=== PATIENT | female | born 1970 ===

== ENCOUNTER 2021-02-18 08:37 | Outpatient (REF) | payer MEDICAID, SELFPAY ==
[2021-02-18 10:05] LABS: MANUAL DIFF FLAG NO
[2021-02-18 10:11] LABS: Basophils Percent Auto 0.5 % (0-2); Eosinophils Absolute Auto 0.1 X10*3/uL (0.0-0.4); Eosinophils Percent Auto 1.6 % (0-4); Hemoglobin 11.8 g/dl (12.0-16.0); Imm Gran Abs Auto 0.02 X10*3/uL (0.00-0.03); Imm Gran Pct Auto 0.3 % (0.0-0.4); Lymphocytes Absolute Auto 1.7 X10*3/uL (1.2-4.9); Mean Corpuscular HGB Conc 31.9 g/dl (31.0-35.0); Mean Corpuscular Hemoglobin 27.6 pg (27.0-33.0); Mean Corpuscular Volume 86.7 fL (80-98); Mean Platelet Volume 11.3 fL (9.4-12.3); Monocytes Absolute Auto 0.6 X10*3/uL (0.1-1.2); Monocytes Percent Auto 9.4 % (2-11); Neutrophils Absolute Auto 3.9 X10*3/uL (2.0-8.3); Neutrophils Percent Auto 61.2 % (45-73); Platelet Count 261 X10*3/uL (160-400); Red Blood Count 4.27 X10*6/uL (4.20-5.50); Red Cell Distribution Width 17.2 % (11.0-16.0); White Blood Count 6.4 X10*3/uL (4.8-10.8)
[2021-02-18 10:34] LABS: Alanine Aminotransferase 14 U/L (0-31); Albumin Level 4.1 g/dL (3.5-5.0); Alkaline Phosphatase 52 U/L (39-117); Anion Gap 11 (12-20); Aspartate Amino Transferase 15 U/L (5-31); Bilirubin Total 0.3 mg/dL (0.0-1.0); Blood Urea Nitrogen 12 mg/dL (9-16); Calcium 8.5 mg/dL (8.4-10.2); Carbon Dioxide 24 mmol/L (22-29); Chloride 108 mmol/L (96-108); Cholesterol 150 mg/dL; Estimated Glomerular Filt Rate > 60; Glucose Random 96 mg/dL (60-115); HDL Cholesterol 59 mg/dL; LDL Cholesterol Calculated 84 mg/dl; Potassium 4.4 mmol/L (3.3-5.1); Sodium 139 mmol/L (135-145); Total Protein 6.8 g/dL (6.5-8.0); Triglycerides 38 mg/dL
== END 2021-02-18 08:38 | disposition home or self-care (01) ==
LOC: HO.LAB 08:37
PROVIDERS: PCP Internal Medicine Geriatric Medicine; Visit Provider Internal Medicine Geriatric Medicine
DX: Z00.00 Encounter for general adult medical examination without abnormal findings (principal); Z13.220 Encounter for screening for lipoid disorders; Z13.1 Encounter for screening for diabetes mellitus
CPT/HCPCS: 36415; 80053; 80061; 85025

== ENCOUNTER 2022-03-13 11:56 | Outpatient (REF) | payer MEDICAID, SELFPAY ==
--- NOTE | ~2022-03-13 | MM_ITS ---
EXAMINATION: MM SCREENING DIGITAL BREAST TOMOSYNTHESIS, BILATERAL CLINICAL INFORMATION: Screening. Asymptomatic. The lifetime risk of breast cancer based on the Tyrer-Cuzick Model is 19%. COMPARISON: Mammography: 06/18/2019, 04/28/2018 TECHNIQUE: Digital breast tomosynthesis is performed in both the craniocaudal and mediolateral oblique views along with computer-aided detection (CAD). Synthesized 2D images are generated from the tomosynthesis. FINDINGS: There are scattered areas of fibroglandular density (ACR BI-RADS breast composition Category b). There are no significant masses, abnormal calcifications, or other abnormalities. Parenchymal pattern is similar to prior studies. No interval architectural abnormality. The axilla are unremarkable. MM/MM tomosynthesis screening BI IMPRESSION: No mammographic evidence of malignancy. ASSESSMENT: BI-RADS 1: Negative RECOMMENDATION: Routine annual mammography screening. This patient's information was entered into a reminder system with a target due date for their next mammogram.
== END 2022-03-13 11:57 | disposition home or self-care (01) ==
LOC: HO.MAMMO 11:56
PROVIDERS: Visit Provider Internal Medicine Geriatric Medicine
DX: Z12.31 Encounter for screening mammogram for malignant neoplasm of breast (principal)
CPT/HCPCS: 77063; 77067

== ENCOUNTER → 2022-04-25 14:48 | Outpatient (BNVA) | payer MEDICAID, SELFPAY | PROVIDERS: PCP Internal Medicine Geriatric Medicine; Referring Provider Internal Medicine Geriatric Medicine; Visit Provider Nurse Practitioner | DX: Z01.818 Encounter for other preprocedural examination (principal); R19.5 Other fecal abnormalities; K59.04 Chronic idiopathic constipation | CPT/HCPCS: 99202 ==

== ENCOUNTER → 2022-05-17 14:57 | Outpatient (BNVA) | payer MEDICAID, SELFPAY | PROVIDERS: PCP Internal Medicine Geriatric Medicine; Visit Provider Nurse Practitioner | DX: Z01.818 Encounter for other preprocedural examination (principal); K59.04 Chronic idiopathic constipation | CPT/HCPCS: 99212 ==

== ENCOUNTER → 2022-06-14 14:58 | Outpatient (BNVA) | payer MEDICAID, SELFPAY | PROVIDERS: PCP Internal Medicine Geriatric Medicine; Visit Provider Nurse Practitioner | DX: K59.04 Chronic idiopathic constipation (principal) | CPT/HCPCS: 99212 ==

== ENCOUNTER 2022-08-22 08:54 | Day surgery (SDC) | payer MEDICAID, SELFPAY ==
[2022-08-16 14:26] VITALS: BMI 29.0
--- NOTE | 2022-08-21 10:27 | HO.ANESPROP2 ---
Documented by User: Zena Murdock NP 08/21/22 10:29 HPI - Anesthesia Eval Consult details Narrative: 52yo F for Colonoscopy [facility] Active Problems Active Problems: All Active Problems (Updated 04/25/22 @ 15:28 by MARLEE Zarate) Chronic idiopathic constipation (Acute) Preop examination (Acute) Fibrocystic breast disease (Acute) Hand pain (Acute) Diabetes (Acute) Past Medical History Medical History No known health problems Family History Family History Sister Breast cancer Maternal Aunt Fear of having malignant neoplasm of lymphatic system Surgical History Surgical History No pertinent past surgical history Social History Social History Patient Tobacco Use Status: Never used Tobacco Use of substances other than those prescribed or required for medical reasons: No Are you DNR?: No Advance Directives: No Advance Directives Information Provided: Yes Meds Allergies Allergy/AdvReac Type Severity Reaction Status Date / Time No Known Allergies Allergy Verified 06/14/22 15:17 [No Known Allergies*] Home Medications Medication Instructions Recorded Confirmed Last Taken Type herbal drugs (Colon Herbal cap PO 04/25/22 Unknown History Cleanser capsule) multivitamin 1 tab PO DAILY 04/25/22 Unknown History Exam Exam Date and Time: August 21, 2022 1027 Height,Weight and Vital Signs: Height 5 ft 3 in Weight 74.389 kg Assessment and Plan Assessment Anesthesia Assessment: Chart Reviewed Documented by User: González Hernandez MD 08/22/22 11:12 [facility] Past Medical History Medical History No known health problems Family History Family History Sister Breast cancer Maternal Aunt Fear of having malignant neoplasm of lymphatic system Family history of problems with anesthesia: No Surgical History Surgical History No pertinent past surgical history History of Problems with Anesthesia: No Social History Social History Patient Tobacco Use Status: Never used Tobacco Use of substances other than those prescribed or required for medical reasons: No Are you DNR?: No Advance Directives: No Advance Directives Information Provided: Yes Meds Allergies Allergy/AdvReac Type Severity Reaction Status Date / Time No Known Allergies Allergy Verified 06/14/22 15:17 [No Known Allergies*] Home Medications Medication Instructions Recorded Confirmed Last Taken Type herbal drugs (Colon Herbal cap PO 04/25/22 Unknown History Cleanser capsule) multivitamin 1 tab PO DAILY 04/25/22 Unknown History Exam Airway Mallampati Class: I TM Dist: >3cm Neck ROM: Full Heart: rrr Lungs: clear Assessment and Plan Final Anesthetic Review Family History of Problems with Anesthesia: No History of Problems with Anesthesia: No NPO: Yes ASA Class: I Final Preanesthetic Review: No Changes in Pt Med Stat, Meds/Allgs Chart Reviewed, Consent Obtained/Reviewed and Anes Risks/Benef Reviewed Patient Risk: Low Procedure Risk: Low Anesthetic Plan Anesthetic Plan: MAC: Disposition: Standard PACU
--- NOTE | 2022-08-22 10:13 | MHC.SHP ---
Pre-Procedural Eval Section A Date of Service: 08/22/22 Section B Chief Complaint: positive cologuard test Relevant Family History (Specify if Yes): No Relevant Social History: None Present Medications: see Short Stay Collaborative assessment Medical History: No relevant PMH History of Previous Operations: No relevant previous surgery Allergies: Allergies Allergy/AdvReac Type Severity Reaction Status Date / Time No Known Allergies Allergy Verified 06/14/22 15:17 [No Known Allergies*] Review of Systems Sugical H&P ROS: Negative: Constitution, Cardiovascular, Respiratory, Neurological, Psychiatric, Hem-Onc, Allergic/Immunologic, Gastrointestinal, Genitourinary, Musculoskeletal, Integumentary, Endocrine and Eyes/Ears/Nose/Throat Exam Surgical H&P Exam: Normal: HEENT, Normal: Heart, Normal: Lungs, Normal: Extremities, Normal: Abdomen, Normal: Skin and Normal: Neurological Plan Diagnosis/Plan: Unchanged I have reviewed the history and physical and performed a pertinent physical examination on my patient. No changes have occurred unless specified. Time Spent With Patient Time: Total time managing care of this patient today ____ minutes.
[2022-08-22 10:19] VITALS: BP 127/70; PULSE 71; RESP 18; TEMP 36.7; O2SAT 100; BMI 26.6
[2022-08-22] MEDS: Lactated Ringers 1,000 ML 100 ML IVCONT (10:57)
--- NOTE | 2022-08-22 10:59 | W.PM.OPN ---
Operative Note Operative Note Date of Service: 08/22/22 Narrative: Operative Information Procedure Description: Colonoscopy Indication: pos cologuard test Anesthesia: MAC COLONOSCOPY Instrument: Olympus variable stiffness pediatric scope 190L Colonoscopy Monitoring: Vital signs and clinical assessment, continuous EKG monitoring, Pulse oximetry, Carbon Dioxide monitoring and blood pressure monitoring were done throughout the procedure. Colon withdrawal time was 10 minutes. Procedure: The patient was placed in the left lateral decubitis position and pre-procedure medications were administered. After a digital rectal examination of the ano-rectum, the video colonoscope was inserted into the rectum and advanced through the colon to the cecum/TI. The colonoscope was slowly withdrawn in a retrograde panoramic fashion and the colon mucosa was carefully examined including a retroflexed view of the rectum. Findings and interventions are described below. Procedure Difficulty: easy Findings: Terminal Ileum-normal melanosis coli noted thru out colon, mild Cecum:normal Ascending Colon: normal Transverse Colon -normal Descending Colon:normal Sigmoid Colon: normal Rectum: Retroflexion with medium sized internal hemorrhoids, grade I Anorectum - normal Colon preparation: [place] Bowel Preparation Scale Right colon; 2 Transverse colon: 3 Left colon; 3 (0 = Unprepared colon segment with mucosa not seen due to solid stool that cannot be cleared. 1 = Portion of mucosa of the colon segment seen, but other areas of the colon segment not well seen due to staining, residual stool and/or opaque liquid. 2 = Minor amount of residual staining, small fragments of stool and/or opaque liquid, but mucosa of colon segment seen well. 3 = Entire mucosa of colon segment seen well with no residual staining, small fragments of stool or opaque liquid) Impression and Post Procedure Diagnosis: internal hemorrhoids melanosis coli Plan: High fiber diet leaflet Avoid straining at stool, epsom salts and sitz bath, anusol supps or cream Repeat Colonoscopy in 10 years or earlier if clinically indicated Above findings were reviewed with the patient and relevant handouts were provided if indicated.
[2022-08-22 11:42] VITALS: BP 102/98; PULSE 86; RESP 14; TEMP 36.6; O2SAT 98
[2022-08-22 11:57] VITALS: BP 116/66; PULSE 76; RESP 13; TEMP 36.2; O2SAT 100
== END 2022-08-22 12:40 | disposition home or self-care (01) ==
PROVIDERS: PCP Internal Medicine Geriatric Medicine; Visit Provider Internal Medicine Gastroenterology
PROC: 0DJD8ZZ Inspection of Lower Intestinal Tract, Via Natural or Artificial Opening Endoscopic (ICD-10-PCS; CPT 45378; principal; 2022-08-22 11:10)
DX: R19.5 Other fecal abnormalities (principal); K63.89 Other specified diseases of intestine; K64.0 First degree hemorrhoids; K59.04 Chronic idiopathic constipation; Z79.899 Other long term (current) drug therapy
CPT/HCPCS: 45378

== ENCOUNTER → 2022-09-06 11:48 | Outpatient (BNVA) | payer MEDICAID, SELFPAY | PROVIDERS: PCP Internal Medicine Geriatric Medicine; Referring Provider Internal Medicine Geriatric Medicine; Visit Provider Nurse Practitioner | DX: K59.04 Chronic idiopathic constipation (principal) | CPT/HCPCS: 99212 ==

== ENCOUNTER 2023-02-23 07:03 | Emergency (ER) | payer MEDICAID, SELFPAY ==
[2023-02-23 07:08] VITALS: BP 152/75; PULSE 74; RESP 18; TEMP 36.1; O2SAT 98; BMI 29.6
[2023-02-23 07:31] VITALS: BP 114/69; PULSE 84; RESP 18; O2SAT 97
--- NOTE | 2023-02-23 07:32 | ED.EXTPRO ---
HPI - Extremity Problem General Chief complaint: Extremity Injury, Upper Stated complaint: R neck/ arm pain Time Seen by Provider: 02/23/23 07:27 Source: patient Mode of arrival: ambulatory Limitations: no limitations History of Present Illness HPI Narrative: 53 yo female with history of DM, constipation who presents to the ER for evaluation of right sided neck pain and arm pain that started yesterday while at work after doing heavy lifting. She states the pain has been constant, is worse with movement of the neck and right arm. She took ibuprofen with minimal relief. She denies any associated trauma, chest pain, SOB, back pain. No weakness, numbnes or tingling in the right arm but the pain does radiate down the right arm. MD Complaint: extremity pain and other (right sided neck pain) Onset (ago): day(s) (1) Pain Consistency: constant Location: right, upper extremity and other (neck) Severity scale (1-10): 6 Quality: aching Radiation: distal Relieving factors: rest Exacerbating factors: range of motion and palpation Related Data Home Medications Medication Instructions Recorded Confirmed herbal drugs (Colon Herbal cap PO 04/25/22 Cleanser capsule) multivitamin 1 tab PO DAILY 04/25/22 Previous Rx's Medication Instructions Recorded linaclotide 290 mcg capsule 290 mcg PO QAM 30 days #30 caps 09/06/22 (Linzess) cyclobenzaprine 10 mg tablet 10 mg PO TID PRN muscle spasm #14 02/23/23 tabs lidocaine 5 % topical patch 1 patch topical DAILY #15 ea 02/23/23 naproxen 500 mg tablet 500 mg PO BID PRN pain #20 tabs 02/23/23 Allergies Allergy/AdvReac Type Severity Reaction Status Date / Time No Known Allergies Allergy Verified 02/23/23 07:10 [No Known Allergies*] Review of Systems Review of Systems: Yes all other systems are reviewed and are negative PMFSH Past Medical History Medical History No known health problems Surgical History H/O colonoscopy Family History Family History Sister Breast cancer Maternal Aunt Fear of having malignant neoplasm of lymphatic system Social History Social History Alcohol intake: never Patient Tobacco Use Status: Never used Tobacco Smoked in Last 30 Days: No Use of substances other than those prescribed or required for medical reasons: No Advance Directives: No Advance Directives Information Provided: No Physical Exam Vital Signs: Vital Signs: Last Vital Signs Temp 96.9 F 02/23/23 07:08 Pulse 84 02/23/23 07:31 Resp 18 02/23/23 07:31 BP 114/69 02/23/23 07:31 Pulse Ox 97 02/23/23 07:31 O2 Del Method Room Air 02/23/23 07:31 BMI result Body Mass Index 29.6 Appearance: Alert. Oriented X3. No acute distress. HEENT: normal inspection, atraumatic, normocephalic Neck: normal inspection, pain with rotation to the left. no midline tenderness. palpable spasm and tenderness of the right lateral soft tissues. CVS: Normal heart rate and rhythm. Pulses normal. Respiratory: No respiratory distress. Skin: Skin warm and dry. Normal skin color. Normal skin turgor. No rashes. Extremities: normal inspection of the bilateral upper extremities, normal ROM of the right shoulder with pain upon full abduction of the shoulder. tenderness of the upper trapzius and right anterior shoulder. negative empty can test. Neuro: Oriented X 3. No motor deficit. No sensory deficit. Strength is equal and symmetrical throughout. Medical Decision Making Medical Decision Making MDM Narrative: 53 yo female presents to the ER for evaluation of right sided neck and shoulder pain x1 day after heavy lifting. Exam and clinical presentation is c/w muscle strain and spasm. no trauma. No associated chest pain or back pain. will plan to treat with nsaid, muscle relaxer and lidoderm patches. discussed RICE and need for outpatient follow up. patient agrees w/ plan Differential Diagnosis Differential Diagnoses: The differential diagnosis associated with the presentation includes cervical strain, cervical spasm, cervical radiculopathy, rotator cuff injury, no evidence of dermatomal rash like zoster External Record Review External record reviewed: Outpatient record, Prior outpatient labs and Prior outpatient radiology Tests considered The following testing was considered but not selected: x-ray considered but deferred, no trauma Prescription Management I considered prescription management with: Pain Medication Chronic Conditions Patient?s care impacted by: Diabetes Critical Care Time Critical Care Time Critical Care Time: No Discharge Plan Discharge Clinical Impression: Cervical muscle strain Patient Disposition: Home, Self-Care Instructions: Cervical Strain (DC) Additional Instructions: Your pain is most likely due to muscle strain and spasm. No bending, lifting or twisting. Use ice several times per day for 20 minutes at a time for the next 48 hours and then change to heat. Take medications as prescribed to help with pain and discomfort. Follow up with your Primary Care Doctor this week. If your pain worsens, if you develop new numbness, tingling, weakness, loss of function or incontinence call 911 or come back to the ER right away for evaluation. Lo m?s probable es que noriega dolor se deba a tensi?n y espasmos musculares. Sin doblar, levantar o torcer. Use hielo varias veces al d?a odette 20 minutos a la vez odette las pr?ximas 48 horas y luego cambie a calor. [place] los medicamentos seg?n lo prescrito para ayudar con el dolor y la incomodidad. Deanne un seguimiento con noriega m?dico de atenci?n primaria esta semana. Si noriega dolor empeora, si desarrolla un nuevo entumecimiento, hormigueo, debilidad, p?rdida de funci?n o incontinencia, llame al 911 o regrese a la danielle de emergencias de inmediato para coral evaluaci?n. Prescriptions: New cyclobenzaprine 10 mg tablet 10 mg PO TID PRN (Reason: muscle spasm) Qty: 14 0RF lidocaine 5 % adhesive patch,medicated 1 patch topical DAILY Qty: 15 0RF Rx Instructions: leave on most painful area for up to 12 hrs naproxen 500 mg tablet 500 mg PO BID PRN (Reason: pain) Qty: 20 0RF No Action Linzess 290 mcg capsule 290 mcg PO QAM 30 Days Qty: 30 6RF multivitamin Tablet 1 tab PO DAILY Colon Herbal Cleanser Capsule PO Referrals: Name,MD Cheko [Primary Care Provider] - Interventions: ED Discharge Assessment Last Done: 02/23/23 07:40 Print Language: Slovenian
--- NOTE | 2023-02-23 07:34 | PC.NURSE ---
Alert and oriented. Arrived from home with right neck and shoulder pain. Stating was lifting something heavy at work yesterday and then felt the pain . States pain is 5/10. Hand grasps and shoulder shrugs strong and equal .Denies headache, sob, or chest pain. vss.
--- NOTE | 2023-02-23 07:41 | PC.NURSE ---
Discharge instructions reviewed with patient via aircraft skin burnisher. Patient verbalized understanding.
== END 2023-02-23 07:44 | disposition home or self-care (01) ==
PROVIDERS: Emergency Provider Emergency Medicine; PCP Internal Medicine Geriatric Medicine
DX: S16.1XXA Strain of muscle, fascia and tendon at neck level, initial encounter (principal); X50.0XXA Overexertion from strenuous movement or load, initial encounter; Y93.89 Activity, other specified; Y92.59 Other trade areas as the place of occurrence of the external cause; Y99.0 Civilian activity done for income or pay
CPT/HCPCS: 99283; 99284

== ENCOUNTER → 2023-03-07 12:27 | Outpatient (BNVA) | payer MEDICAID, SELFPAY | PROVIDERS: PCP Internal Medicine Geriatric Medicine; Visit Provider Nurse Practitioner | DX: K59.04 Chronic idiopathic constipation (principal) | CPT/HCPCS: 99212 ==

== ENCOUNTER 2023-03-15 08:54 | Outpatient (REF) | payer MEDICAID, SELFPAY ==
--- NOTE | ~2023-03-15 | MM_ITS ---
EXAMINATION: MM SCREENING DIGITAL BREAST TOMOSYNTHESIS, BILATERAL CLINICAL INFORMATION: Screening. Asymptomatic. The lifetime risk of breast cancer based on the Tyrer-Cuzick Model is 19%. COMPARISON: Mammography: This study is compared with prior exams dating back to 2018. TECHNIQUE: Digital breast tomosynthesis is performed in both the craniocaudal and mediolateral oblique views along with computer-aided detection (CAD). Synthesized 2D images are generated from the tomosynthesis. FINDINGS: There are scattered areas of fibroglandular density (ACR BI-RADS breast composition Category b). There are no significant masses, abnormal calcifications, or other abnormalities. MM/MM tomosynthesis screening BI IMPRESSION: No mammographic evidence of malignancy. ASSESSMENT: BI-RADS BI-RADS 1 - Negative RECOMMENDATION: Routine annual mammography screening. 1 year F/U This examination should not preclude the clinical evaluation of a suspicious palpable abnormality. This patient's information was entered into a reminder system with a target due date for their next mammogram.
== END 2023-03-15 08:55 | disposition home or self-care (01) ==
LOC: HO.MAMMO 08:54
PROVIDERS: PCP Internal Medicine Geriatric Medicine; Visit Provider Internal Medicine Geriatric Medicine
DX: Z12.31 Encounter for screening mammogram for malignant neoplasm of breast (principal)
CPT/HCPCS: 77063; 77067

== ENCOUNTER → 2023-03-15 09:00 | Outpatient (BNV) | payer MEDICAID, SELFPAY | PROVIDERS: PCP Internal Medicine Geriatric Medicine; Visit Provider Radiology Diagnostic Radiology | DX: Z12.31 Encounter for screening mammogram for malignant neoplasm of breast (principal) | CPT/HCPCS: 77063; 77067 ==

== ENCOUNTER 2023-03-30 07:49 | Outpatient (REF) | payer MEDICAID, SELFPAY ==
[2023-03-30 09:01] LABS: Cholesterol 187 mg/dL; HDL Cholesterol 51 mg/dL; LDL Cholesterol Calculated 122 mg/dl; Triglycerides 73 mg/dL
== END 2023-03-30 07:50 | disposition home or self-care (01) ==
LOC: HO.LAB 07:49
PROVIDERS: PCP Internal Medicine Geriatric Medicine; Visit Provider Internal Medicine Geriatric Medicine
DX: Z00.00 Encounter for general adult medical examination without abnormal findings (principal); K59.04 Chronic idiopathic constipation; G47.00 Insomnia, unspecified; Z13.1 Encounter for screening for diabetes mellitus; Z13.220 Encounter for screening for lipoid disorders
CPT/HCPCS: 36415; 80061

== ENCOUNTER 2024-03-05 11:50 | Outpatient (AMB) | payer OTHER, SELFPAY ==
[2024-03-05 11:59] VITALS: BP 142/75; PULSE 76; BMI 27.7
--- NOTE | 2024-03-05 11:59 | MHC.OFFVIS ---
Vital Signs 03/05/24 11:59 Height 5 ft 4 in Weight 161 lb 6.054 oz BMI 27.7 BP 142/75 H Blood Pressure Location Lt brachial Position Sitting Pulse 76 Intake Visit Reasons: 1 yr follow up Intake Note: Tamy presents to in office one year follow up of CIC. CC: Patient continues taking the Linzess and reports that she is doing well. Denies having any new GI symptoms or concerns. Rework Operator Required: Yes Accompanied by: Self / Same As Patient Allergies No Known Allergies [No Known Allergies*] Allergy (Verified 03/05/24 11:59) HPI HPI 1 yr follow up: Details: Assessment & Plan (1) Chronic idiopathic constipation: Code(s): K59.04 - Chronic idiopathic constipation Plan: [place] #Zainab Mckenzie She continues to do well on the Linzess 290mcg and she continues to be happy with this regimen. She has no new health problems to report. ROV 1 year. Medications: Refilled linaclotide (Linzess) 290 mcg PO QAM 30 days 30 caps 12RF K59.04 - Chronic idiopathic constipation TODAY'S VISIT [place] #[id number] She continues to do well on her Linzess. Return office visit in 6 months [facility] Medical History No known health problems Surgical History H/O colonoscopy Family History Sister Breast cancer Maternal Aunt Fear of having malignant neoplasm of lymphatic system Social History Alcohol intake: never Patient Tobacco Use Status: Never used Tobacco Review of Systems Const Denies fatigue, Denies fever(s), Denies night sweats, Denies poor appetite and Denies weight loss ENT Reports Normal hearing present, Denies dental pain, Denies dysphagia, Denies hearing loss, Denies mouth pain, Denies odynophagia, Denies throat swelling, Denies tongue swelling and Reports other (Dentition adequate) Card Reports no additional complaints Resp Reports no additional complaints GI Details: Denies abdominal pain, Denies melena, Denies bloating, Denies hematochezia, Reports constipation, Denies GI cramping, Denies dysphagia, Denies excessive flatus, Denies early satiety, Denies heartburn, Denies diarrhea, Denies nausea, Denies odynophagia, Denies vomiting and Denies hematemesis Skin/Breast Denies pruritus, Denies lesions, Denies rash and Denies jaundice Neuro Reports Normal hearing present and Denies Abnormal speech present Endo Denies fatigue Aller/Immun Denies throat swelling and Denies tongue swelling Physical Exam Vital Signs: Last Vital Signs Pulse 76 03/05/24 11:59 BP 142/75 H 03/05/24 11:59 BMI result Body Mass Index 27.7 Const General: cooperative, no acute distress, well developed and well groomed Nutritional Appearance: average body habitus and well nourished Orientation/consciousness: oriented to person, oriented to place and oriented to time Limitations: language barrier HEENT Head: Yes normocephalic and Yes atraumatic Eyes General: appearance normal, both eyes and all related structures Pupils: Equal, round and reactive pupils present Neck Neck: Yes normal visual inspection and Yes no lymphadenopathy Thyroid: Thyroid normal Resp Effort & Inspection: normal respiratory effort and able to speak in complete sentences Auscultation: clear to auscultation bilaterally Cardio Rate: regular rate Rhythm: regular rhythm Heart sounds: Normal, physiologic split S2 sound present Peripheral pulses: radial pulses present and posterior tibial pulses present GI Inspection: No distended and No Abdominal panniculus present Palpation (GI): Soft to palpation, nontender, no guarding, not rigid and No hepatosplenomegaly present Percussion: Yes normal to percussion Auscultation: normal bowel sounds Rectal Exam - Female: deferred Skin General skin exam: no rashes or lesions noted, turgor normal, skin not dry, no jaundice, No spider nevi and no striae Rashes: no rashes Nails: normal Neuro General: oriented to person, oriented to place and oriented to time Cranial nerves: Yes Equal, round and reactive pupils present and Yes Normal hearing present Speech: No Abnormal speech present Extrem General: Yes normal to inspection, No clubbing, No cyanosis and No edema Psych Appearance: grossly normal and well kempt Mental Status: mental status grossly normal Speech and movement: Normal speech and movement present Affect: normal affect Attitude: cooperative Thought process: Normal thought process present and not confabulating Thought content: Normal thought content present Insight: Limited insight present (Psych) Judgement: Limited judgement present (Psych) Assessment & Plan Assessment & Plan (1) Chronic idiopathic constipation: Code(s): K59.04 - Chronic idiopathic constipation Category: Medical Plan [place] #[id number] She continues to do well on her Linzess. Return office visit in 6 months Medications: Refilled linaclotide (Linzess) 290 mcg PO QAM 30 caps 12RF 30 days K59.04 - Chronic idiopathic constipation Coding Level of Care Code Est Pt Level 3 (42942) Diagnoses Chronic idiopathic constipation K59.04
== END 2024-03-05 12:18 | disposition home or self-care (01) ==
PROVIDERS: PCP Internal Medicine Geriatric Medicine; Visit Provider Nurse Practitioner
DX: K59.04 Chronic idiopathic constipation (principal)
CPT/HCPCS: 99213

== ENCOUNTER → 2024-03-05 11:50 | Outpatient (BNVA) | payer OTHER, SELFPAY | PROVIDERS: PCP Internal Medicine Geriatric Medicine; Visit Provider Nurse Practitioner | DX: K59.04 Chronic idiopathic constipation (principal) | CPT/HCPCS: 99212 ==

== ENCOUNTER 2024-03-18 08:50 | Outpatient (REF) | payer OTHER, SELFPAY | END 2024-03-18 08:51 | disposition home or self-care (01) | LOC: HO.MAMMO 08:50 | PROVIDERS: PCP Internal Medicine Geriatric Medicine; Visit Provider Internal Medicine Geriatric Medicine | DX: Z12.31 Encounter for screening mammogram for malignant neoplasm of breast (principal) | CPT/HCPCS: 77063; 77067 ==

== ENCOUNTER → 2024-03-18 09:00 | Outpatient (BNV) | payer OTHER, SELFPAY | PROVIDERS: PCP Internal Medicine Geriatric Medicine; Visit Provider Radiology Diagnostic Radiology | DX: Z12.31 Encounter for screening mammogram for malignant neoplasm of breast (principal) | CPT/HCPCS: 77063; 77067 ==

== ENCOUNTER 2024-12-29 08:02 | Outpatient (REF) | payer OTHER, SELFPAY ==
--- OUTSIDE RECORDS SUMMARY | 2024-12-29 08:11 | XMS_ITS | Encounter Summary ---
Author Organization [employer] Address [address] [facility] [address] [place] [address] Care Team Providers Care Photovoltaic Testing Technician Name Role Phone Name, Cheko BRANDT Primary Care Provider [phone] Reason for Visit * Reason Comments Elevated Blood Pressure Reading Encounter Details Date Type Department Care Team ([facility] st Contact Info) Description 12/24/2024 3:00 PM EDT Telemedicine [facility] [address] [place] [address] Suzanna Roach RN Elevated blood pressure reading Social History Tobacco Use Types Packs/Day Years Used Date Smoking Tobacco: Never Passive Smoke Exposure: Never Smokeless Tobacco: Never Alcohol Use Standard Drinks/Week Comments Never 0 (1 standard drink = 0.6 oz pur e alcohol) Depression Answer Date Recorded Patient Health Questionnaire-9 Score 0 12/15/2024 Patient Health Questionnaire-9 Score 0 12/15/2024 Last PHQ-9: Questionnaire Data Not on file 0 12/15/2024 Housing Stability Answer Date Recorded What is your housing situation today? I have diana ugalde 04/03/[address] you li ve. Do you have problems with any of the following? None of the above 04/03/2024 Food Insecurity Answer Date Recorded Within the past 12 months, y ou worried that your food would run out before you got money to buy more: Never True 04/03/2024 Within the past 12 months,th e food you bought just didn't last and you didn't have enough money to get more: Never True Transportation Answer Date Recorded In the past 12 months, has l ack of transportation kept you from medical appts, meetings, work or from getting things needed for daily living? No 04/03/2024 Utilities Answer Date Recorded In the past 12 months, has t he electric, gas, oil or water company threatened to shut off services in your home? No 04/03/2024 Depression Answer Date Recorded Patient Health Questionnaire-2 Score 0 12/15/2024 Internet Access Answer Date Recorded Internet Access Q1 Yes 05/11/2024 Internet Access Q2 Not on file 05/11/2024 Comments Unknown Sex and Gender Information Value Date Recorded Sex Assigned at Female 07/09/2022 10:31 AM EDT Legal Sex Female 10:31 AM EDT Gender Identity Female 07/09/2022 10:31 AM EDT Sexual Orientation Straight 07/09/2022 10 :31 AM EDT documented as of this encounter Progress Notes * Suzanna Roach RN - 12/24/2024 3:00 PM EDT SUBJECTIVE: Tamy Ramirez is a 54 y.o. year old female who presents for Elevated Blood Pressure Reading Preferred language for medical information: Manager Universal needed: Yes; [employer] metalizing supervisor (ID#[id number]) x 2 attempts. No answer. Purse Framer attempted to reach pt without metalizing supervisor. Pt answered. TC with [facility] metalizing supervisor Imer ID#[id number]. Today, Tamy Ramirez does not complain of any blurred vision, shortness of breath, chest pain, dizziness, or headaches. Pt denies smoking cigarettes or drinking alcohol. Pt reports they go to the gym and use weights for legs 2 times per week for 1 hour. Pt reports they walk Saturday-Saturday. Pt reports for breakfast have eggs, ham, cheese, and coffee. Pt reports they do not eat lunch. Pt reports they eat chicken, rice, and salad for dinner. Current Outpatient Medications Medication Sig Dispense Refill acetaminophen (Tylenol) 500 MG tablet Take 1 tablet (500 mg) by mouth every 6 (six) hours if neededfor mild pain for up to 20 doses. (Patient not taking: Reported on 12/11/2024) 20 tablet 0 Blood Pressure kit Use once a day 1 kit 0 Multiple Vitamins-Minerals (MULTIVITAMIN ADULT, MINERALS, PO) 1 tablet. naproxen (Naprosyn) 500 MG tablet TAKE 1 TABLET ORALLY 2 TIMES A DAY NEEDED FOR PAIN (Patient not taking: Reported on 12/11/2024) No current facility-administered medications for this visit. Patient Active Problem List Diagnosis Date Noted Dental calculus 05/12/2024 Dental plaque 05/12/2024 Chronic idiopathic constipation 03/26/2023 Fibrocystic breast disease 04/28/2018 Patient has no known allergies. Social History Tobacco Use Smoking Status Never Passive exposure: Never Smokeless Tobacco Never Social History Substance and Sexual Activity Alcohol Use Never Social History Substance and Sexual Activity Drug Use Never BP Readings from Last 4 Encounters: 12/15/24 (!) 146/82 12/11/24 124/78 06/09/24 124/78 05/12/24 125/85 Pulse Readings from Last 4 Encounters: 12/15/24 78 05/12/24 60 04/13/24 65 02/11/24 80 OBJECTIVE: Pt at home BP and HR readings as follows: 12/15/24: BP 126/82, HR 78 12/15/24: BP 130/80, HR 73 12/16/24: BP 129/88, HR 75 12/16/24: BP 128/79, HR 69 12/17/24: BP 130/88, HR 70 12/17/24: BP 128/82, HR 68 12/18/24: BP 134/89, HR 68 12/18/24: BP 130/87, HR 69 12/19/24: not home, no BP readings 12/20/24: BP 130/88, HR 75 12/20/24: BP 126/86, HR 69 12/21/24: BP 129/85, HR 74 12/21/24: BP 130/88, HR 70 12/22/24: BP 130/85, HR 75 12/22/24: BP 127/83, HR 68 12/23/24: BP 129/85, HR 70 12/23/24: BP 123/83, HR 67 12/24/24: BP 130/83, HR 66 ASSESSMENT: Achieve goal blood pressure of <140/90 or <130/80 PLAN: Tamy Ramirez advised of lifestyle modifications including low sodium diet and exercise were reviewed. Advised to avoid fried, fatty, processed foods, sweets, juice, soda. Encouraged to eat baked chicken, turkey, fish, fruits, vegetables, water. Tamy Ramirez agreeable to plan discussed at today's visit. Future Appointments Date Time Provider Department Center 06/17/2025 3:00 PM Rekha Holt [facility] Suzanna Roach, RN documented in this encounter Plan of Treatment Upcoming Encounters Date Type Department Care Team (Late st Contact Info) Description 06/17/2025 3:00 PM EDT Office Visit [facility] [address] [place] [address] Rekha Holt documented as of this encounter Visit Diagnoses Diagnosis Elevated blood pressure reading Elevated blood pressure reading without diagnosis of hypertension documented in this encounter Additional Health Concerns Assessment Noted Time PHQ-9 Depression Total Score: 0 12/16/19 25 3:55 PM EDT documented as of this encounter Care Teams Photovoltaic Testing Technician Relationship Specialty Start Date End Date Name, MD Cheko [address] [place] [address] PCP - General Family Medicine 03/04/17 documented as of this encounter
--- OUTSIDE RECORDS SUMMARY | 2024-12-29 08:11 | XMS_ITS | Encounter Summary ---
Author Organization [employer] Address [address] [place] [address] Care Team Providers Care Machine Tool Rebuilder Name Role Phone Name, Cheko BRANDT Primary Care Provider [phone] Encounter Details Date Type Department Care Team (Latest Contact Info) Description 12/24/2024 Travel Social History Tobacco Use Types Packs/Day Years [...] AM EDT documented as of this encounter Plan of Treatment Upcoming Encounters Date Type Department Care Team (Late st Contact Info) Description 06/17/2025 3:00 PM EDT Office Visit [facility] [address] [place] [address] Rekha Holt documented as of this encounter Visit Diagnoses Not on filedocumented in this encounter Additional Health Concerns Assessment Noted Time PHQ-9 Depression Total Score: 0 12/16/19 25 3:55 PM EDT documented as of this encounter Care Teams Machine Tool Rebuilder Relationship Specialty Start Date End Date Name, MD Cheko [address] [place] [id number] PCP - General Family Medicine 03/04/17 documented as of this encounter
--- OUTSIDE RECORDS SUMMARY | 2024-12-29 08:11 | XMS_ITS | Encounter Summary ---
Author Organization [employer] Address [address] [facility] [address] [place] [address] Care Team Providers Care Research Chemist Name Role Phone Name, Cheko BRANDT Primary Care Provider [phone] Reason for Visit * Reason Onset Date Comments insurance for appt 02/11/2024 Encounter Details Date Type Department Care Team ([facility] st Contact Info) Description 02/11/2024 Telephone [facility] [address] [place] [address] Rosaura Desouza, DDS [address] [place] [address] insurance for appt Social History Tobacco Use Types Packs/Day Years Used Date Smoking Tobacco: Never Smokeless Tobacco: Never Alcohol Use Standard Drinks/Week Comments Never 0 (1 standard drink = 0.6 oz pur e alcohol) Depression Answer Date Recorded Patient Health Questionnaire-9 Score 0 03/26/2023 Housing Stability Answer Date Recorded What is your housing situation today? I have diana ugalde 07/08/[address] you li ve. Do you have problems with any of the following? None of the above 07/08/2023 Food Insecurity Answer Date Recorded Within the past 12 months, y ou worried that your food would run out before you got money to buy more: Never True 07/08/2023 Within the past 12 months,th e food you bought just didn't last and you didn't have enough money to get more: Never True Transportation Answer Date Recorded In the past 12 months, has l ack of transportation kept you from medical appts, meetings, work or from getting things needed for daily living? No 07/08/2023 Utilities Answer Date Recorded In the past 12 months, has t he electric, gas, oil or water company threatened to shut off services in your home? No 07/08/2023 Depression Answer Date Recorded Patient Health Questionnaire-2 Score 0 03/26/2023 Comments Unknown Sex and Gender Information Value Date Recorded Sex Assigned at Female 07/09/2022 10:31 AM EDT Legal Sex Female 10:31 AM EDT Gender Identity Female 07/09/2022 10:31 AM EDT Sexual Orientation Straight 07/09/2022 10 :31 AM EDT documented as of this encounter Miscellaneous Notes * Telephone Encounter - Avril Shepard - 02/11/2024 8:38 AM EDT Patient did not have [facility] card on her and unable to provie number. No access to MMIS on PAR side Insurance not posted or added to chart. Informed patient must bring her insurance card to appt with her. Patient understood Informed front desk lead via email and documented in chart DR documented in this encounter Plan of Treatment Upcoming Encounters Date Type Department Care Team (Late st Contact Info) Description 06/17/2025 3:00 PM EDT Office Visit [facility] [address] [place] [address] Rekha Holt documented as of this encounter Visit Diagnoses Not on filedocumented in this encounter Additional Health Concerns Assessment Noted Time PHQ-9 Depression Total Score: 0 03/26/20 23 9:41 AM EDT documented as of this encounter Care Teams Research Chemist Relationship Specialty Start Date End Date Name, MD Cheko [address] [place] [address] PCP - General Family Medicine 03/04/17 documented as of this encounter
--- OUTSIDE RECORDS SUMMARY | 2024-12-29 08:11 | XMS_ITS | Clinical Summary ---
Author Organization [employer] Address [address] [facility] [address] [place] [address] Care Team Providers Care Webbing Tacker Name Role Phone Name, Cheko BRANDT Primary Care Provider [phone] Allergies No known active allergies Medications naproxen (Naprosyn) 500 MG tablet TAKE 1 TABLET ORALLY 2 TIMES A DAY NEEDED FOR PAIN 023 Active acetaminophen (Tylenol) 500 MG tablet Take 1 tablet (500 mg) by mouth every 6 (six) hours if needed for mild pain for up to 20 doses. 20 tablet 024 Active Additional Information Patient not taking.Reported on 12/11/2024 Multiple Vitamins-Minerals (MULTIVITAMIN ADULT, MINERALS, PO) 1 tablet. 022 Active Blood Pressure kitIndications:El evated blood pressure reading Use once a day 1 kit 025 Active Linzess 290 MCG capsule TAKE 1 CAPSULE BY MOUTH DAILY IN THE MORNING 023 2024 Discontinued(T herapy completed) lidocaine (Lidoderm) 5 % patch APPLY 1 PATCH TOPICALLY DAILY LEAVE ON MOST PAINFUL AREA FOR UP TO 12 HOURS 023 2024 Discontinued(T herapy completed) cyclobenzaprine (Flexeril) 10 MG tablet TAKE 1 TABLET ORALLY 3 TIMES A DAY NEEDED FOR MUSCLE SPASM 023 2024 Discontinued Diclofenac Sodium (Voltaren) 1 % gelIndications:Os teoarthritis of hand, unspecified laterality, unspecified osteoarthritis type,Heberden's node Apply a think layer twice a day to the affected fingers 50 g 3 024 2024 Discontinued(T herapy completed) Cyclobenzaprine-L idocaine-Ment (CYCLOBENZAPRINE & LIDO-MENT CO) 10 mg. 023 2024 Discontinued(T herapy completed) Active Problems Problem Noted Date Diagnosed Date Dental calculus 05/12/2024 Dental plaque 05/12/2024 Chronic idiopathic constipation 03/26/2023 Overview (03/26/2023): Normal colonoscopy 08/2022 Fibrocystic breast disease 04/28/2018 Resolved Problems Problem Noted Date Diagnosed Date Resolved Date Cervical muscle strain 03/26/202303/26 Diabetes 03/26/2023 03/26/2023 Preop examination 03/26/2023 03/26/2023 Positive colorectal cancer s creening using DNA-based stool test 03/13/2022 03/26/2023 Hand pain 11/04/2017 03/26/2023 Encounters Date Type Department Care Team Description 12/24/2024 3:00 PM EDT Telemedicine [facility] [address] [place] [id number] Suzanna Roach RN Elevated blood pressure reading 12/24/2024 Travel 12/15/2024 3:45 PM EDT Office Visit [address] [address] Cheko Griggs MD Elevated blood pressure reading (Primary Dx); Screening for diabetes mellitus; Screening for cholesterol level; Family history of breast cancer 12/15/2024 Travel 12/14/[address] [address] Jerald Ochoa MA chart pep 12/11/2024 3:00 PM EDT Office Visit [facility] ADULT DENTAL [address] [place] [address] Rekha Holt from Last 3 Months Immunizations Name Administration Dates Next Due Influenza injectable quadriv alent IIV4 with preservative 06/25/2018 MMR 03/15/2017 Tdap 03/07/2017 Family History Medical History Relation Name Comments Breast cancer Sister 1 Breast cancer Sister 2 Relation Name Status Comments Sister 1 Sister 2 Alive Social History Tobacco Use Types Packs/Day Years Used Date Smoking Tobacco: Never Passive Smoke Exposure: Never Smokeless Tobacco: Never Tobacco Cessation:Counseling Given: Not Answered Alcohol Use Standard Drinks/Week Comments Never 0 [...] Orientation Straight 07/09/2022 10 :31 AM EDT Last Filed Vital Signs Vital Sign Reading Time Taken Comments Blood Pressure 146/82 12/15/2024 4:02 PM EDT Pulse 78 12/15/2024 3:49 PM EDT Temperature 36.9 ??C (98.5 ??F) 12/15/2024 3:49 PM ED T Respiratory Rate 20 12/15/2024 3:49 PM EDT Oxygen Saturation 99% 12/15/2024 3:49 PM EDT Inhaled Oxygen Concentration - - Weight 75.1 kg (165 lb 8 oz) 12/15/2024 3:49 PM EDT Height 160 cm (5' 3 ) 12/15/2024 3:49 PM EDT Body Mass Index 29.32 12/15/2024 3:49 PM EDT Plan of Treatment Upcoming Encounters Date Type Department Care Team (Late st Contact Info) Description 06/17/2025 3:00 PM EDT Office Visit [facility] ADULT DENTAL [address] [place] [address] Rekha Holt Health Maintenance Due Date Last Done Comments CT Colonography 1972 FIT DNA/Cologuard 1972 FIT 1972 FOBT 1972 HIV Screening 1970 Sigmoidoscopy 1972 Family Planning (PISQ) 01/19/1987 Hepatitis C Screening 01/19/1990 Hepatitis B Vaccines (1 of 3 - 19+ 3-dose series) 01/19/1991 Pneumococcal Vaccine: 50+ Years (1 of 1 - PCV) 01/19/2022 Zoster Vaccines (1 of 2) 01/19/2022 COVID-19 Vaccine (3 - 2023- season) 2024 03/07/2021, 02/14/2021 Influenza Vaccine (#1) 2024 06/25/2018 Mammogram 03/18/2025 03/18/2024, 07/0 03/2023, 03/15/2023, Additional history exists SDOH Screening 04/03/2025 04/03/2024 Dental Oral Exam 06/13/2025 12/11/2024, 11/2023, 07/17/2018 Dental Prophylaxis 06/13/2025 12/11/2024, 05/12/2024 Dental X-Ray: Bitewings 12/12/2025 12/12/19 25, 05/12/2024, 07/17/2018 Alcohol/Substance Use Screening 12/15/2025 12/15/2024 Depression Screening 12/15/2025 12/15/2024, 12/16/19 Tobacco Screening 12/15/2025 12/15/2024 Cervical Cancer Screening 02/22/2026 HPV/Cotest 02/22/2026 02/22/2021 Pap Smear 02/22/2026 02/22/2021 Dental X-Ray: Full Mouth 02/11/2027 02/11/2024, 11/04/2018 DTaP/Tdap/Td Vaccines (2 - Td or Tdap) 03/07/2027 03/07/2017 Colonoscopy 09/09/2031 09/09/2021 Colorectal Cancer Screening 09/09/2031 RSV Patients and Patients Aged 60 years or older (1 - 1-dose 75+ series) 01/19/2047 HIB Vaccines Aged Out No longer eligi ble based on patient's age to complete this topic HPV Vaccines Aged Out No longer eligi ble based on patient's age to complete this topic Hepatitis A Vaccines Aged Out No long er eligible based on patient's age to complete this topic IPV Vaccines Aged Out No longer eligi ble based on patient's age to complete this topic Meningococcal Vaccine Aged Out No keira christianne eligible based on patient's age to complete this topic RSV under 20 months Aged Out No longe r eligible based on patient's age to complete this topic Rotavirus Vaccines Aged Out No longer eligible based on patient's age to complete this topic Procedures Procedure Name Priority Date/Time Associated Diagnosis Comments PERIODIC ORAL EVALUATION - ESTABLISHED PATIENT Routine 12/11/2024 3:00 PM EDT COMPREHENSIVE PERIODONTAL EVALUATION - NEW OR ESTABLISHED PATIENT Routine 12/11/2024 3:00 PM EDT 19 INTRAORAL - PERIAPICAL FIRST RADIOGRAPHIC IMAGE Routine 12/11/2024 3:00 PM EDT BITEWING - SINGLE RADIOGRAPHIC IMAGE Routine 12/11/2024 3:00 PM EDT ORAL HYGIENE INSTRUCTIONS Routine 12/11/2024 3:00 PM EDT CASE PRESENTATION, DETAILED AND EXTENSIVE TREATMENT PLANNING Routine 12/11/2024 3:00 PM EDT PROPHYLAXIS - ADULT Routine 12/11/2024 3 :00 PM EDT BI MAMMOGRAM SCREENING TOMOSYNTHESIS BILATERAL Routine 03/18/2024 9:12 AM EDT PANORAMIC RADIOGRAPHIC IMAGE Routine 02/11/2024 1:00 PM EDT HM COLONOSCOPY Routine 09/09/2021 HPV MRNA E6/E7 Routine 02/22/2021 10:42 AM EDT THINPREP PAP Routine 02/22/2021 10:42 AM EDT from Last 3 Months or Most Recently Relevant to Health Maintenance Results * BI Mammogram Screening Tomosynthesis Bilateral (03/18/2024 9:12 AM EDT) Anatomical Region Laterality Modality Breast Bilateral Mammography 03/18/2024 9:12 AM EDT Narrative 04/13/2024 10:59 PM EDT ? [facility] ? [address] ?[place] [address] ? Mammography Report ? Signed ? Patient: Tamy Boucher ?MR#: ?? [id number] ? : 1970 ?Acct:[id number] ? Age/Sex: 54 / F ?ADM Date: 03/18/24 ? Loc: HO.MAMMO ? Attending Dr: Cheko Name MD ? Ordering Physician: Name,Cheko MD ?Results: 1Negative ? Date of Service: 03/18/24 ?Follow Up: 1 Year From Orig ?? inal Mammogram ? Procedure(s): MM tomosynthesis screening BI ?? Accession Number(s): [id number] ? cc: Name,Cheko BRANDT ? EXAMINATION: ?? MM SCREENING DIGITAL BREAST TOMOSYNTHESIS, BILATERAL ? CLINICAL INFORMATION: ? Screening. Asymptomatic. ? COMPARISON: ?? Mammography: This study is compared with prior exams dating back to ?? 2021. ? TECHNIQUE: ?? Digital breast tomosynthesis is performed in both the craniocaudal and ?? mediolateral oblique views along with computer-aided detection (CAD). ?? Synthesized 2D images are generated from the tomosynthesis. ? FINDINGS: ?? There are scattered areas of fibroglandular density (ACR BI-RADS breast ?? composition Category b). ? There are no significant masses, abnormal calcifications, or other ?? abnormalities. ? MM/MM tomosynthesis screening BI ?? IMPRESSION: ?? No mammographic evidence of malignancy. ? ASSESSMENT: ? BI-RADS BI-RADS 1 - Negative ? RECOMMENDATION: ?? Routine annual mammography screening. ? 1 year F/U ? This examination should not preclude the clinical evaluation of a ?? suspicious palpable abnormality. ? This patient's information was entered into a reminder system with a ?? target due date for their next mammogram. ? Dictated By: ?Jennifer Del Valle MD ? Signed By: ?<Electronically signed by Jennifer Del Valle MD in OV> ? 04/13/246 ? DD/ 1 ? TD/TT: ? Stereotype Finisher: ? Procedure Note Camryn, Image - 04/13/2024 [facility] [address] [place], [place] [address] Mammography Report Signed Patient: Tamy Boucher#: [id number] : 1970Acct:[id number] Age/Sex: 54 / FADM Date: 03/18/24 Loc: JESÚS Attending Dr: Cheko Griggs MD Ordering Physician: Cheko Griggsults: 1Negative Date of Service: 03/18/24Follow Up: 1 Year From Orig inal Mammogram Procedure(s): MM tomosynthesis screening BI Accession Number(s): [id number] cc: Cheko Griggs MD EXAMINATION: MM SCREENING DIGITAL BREAST TOMOSYNTHESIS, BILATERAL CLINICAL INFORMATION: Screening. Asymptomatic. COMPARISON: Mammography: This study is compared with prior exams dating back to 2021. TECHNIQUE: Digital breast tomosynthesis is performed in both the craniocaudal and mediolateral oblique views along with computer-aided detection (CAD). Synthesized 2D images are generated from the tomosynthesis. FINDINGS: There are scattered areas of fibroglandular density (ACR BI-RADS breast composition Category b). There are no significant masses, abnormal calcifications, or other abnormalities. MM/MM tomosynthesis screening BI IMPRESSION: No mammographic evidence of malignancy. ASSESSMENT: BI-RADS BI-RADS 1 - Negative RECOMMENDATION: Routine annual mammography screening. 1 year F/U This examination should not preclude the clinical evaluation of a suspicious palpable abnormality. This patient's information was entered into a reminder system with a target due date for their next mammogram. Dictated By: eJnnifer Del Valle MD Signed By: <Electronically signed by Jennifer Del Valle MD in OV> 04/13/24 2256 DD/ TD/TT: Stereotype Finisher: us Cheko Griggs MD IMG BI PROCEDURES Final Result * Hm Colonoscopy (09/09/2021) Colonoscopy Normal Normal us Cheko Griggs MD HEALTH MAINTENANCE Final Result * THINPREP PAP (02/22/2021 10:42 AM EDT) Clinical Information: None given [facility] COMMENT SEE COMMENT [facility] Comment: EXPLANATORY NOTE: ? The Pap is a screening test for cervical cancer. It is ?? not a diagnostic test and is subject to false negative ?? and false positive results. It is most reliable when a ?? satisfactory sample, regularly obtained, is submitted ?? with relevant clinical findings and history, and when ?? the Pap result is evaluated along with historic and ?? current clinical information. ?? Director Housekeeping : SEE COMMENT [facility] Comment: BLC,CT(ASCP) CT screening location: [address] ??[address] Interpretation/R esult: Negative for intraepithelial lesion or malignancy. [facility] LMP: 02/17/2021 [facility] Prev. BX: NONE GIVEN [facility] Prev. PAP: 12/24 NIL [facility] SOURCE: Cervix [facility] Statement Of Adequacy: SEE COMMENT [facility] Comment: Satisfactory for evaluation. Endocervical/transformation zone component present. 02/22/2021 10:4 2 AM EDT M[facility] PATHOLOGY ORDERABLES Final Result Performing Organization Address [facility] Co de Phone Number [facility] [address] * HPV mRNA E6/E7 (02/22/2021 10:42 AM EDT) HPV nRNA E6/E7 Not Detected Not Detected [facility] Comment: Methodology: Health And Fitness Instructor-Mediated Amplification This assay detects E6/E7 viral messenger RNA (mRNA) from 14 high-risk HPV types (16,18,31,33,35,39,45,51,52,56,58,59,66,68). ? The analytical performance characteristics of this assay have been determined by [employer]. The modifications have not been cleared or approved by the FDA. This assay has been validated pursuant to the CLIA regulations and is used for clinical purposes. ?? For additional information, please refer to http://education.The FeedRoom.BCNX/faq/IID789l6 (This link if provided for information/ educational purposes only.) 02/22/2021 10:4 2 AM EDT Monse James [facility] LAB BLOOD ORDERABLES Eneida l Result Performing Organization Address [facility] Co de Phone Number [facility] [address] from Last 3 Months or Most Recently Relevant to Health Maintenance Insurance [facility] - [facility] PARTIAL (MEDICAID) Care Teams Webbing Tacker Relationship Specialty Start Date End Date Name, MD Cheko [address] [place] [address] PCP - General Family Medicine 03/04/17
[2024-12-29 12:05] LABS: Alanine Aminotransferase 23 U/L (0-31); Albumin Level 4.3 g/dL (3.5-5.0); Alkaline Phosphatase 59 U/L (39-117); Anion Gap 9 (12-20); Aspartate Amino Transferase 22 U/L (5-31); Bilirubin Total 0.3 mg/dL (0.0-1.0); Blood Urea Nitrogen 16 mg/dL (9-16); Calcium 8.9 mg/dL (8.4-10.2); Carbon Dioxide 27 mmol/L (22-29); Chloride 108 mmol/L (96-108); Cholesterol 179 mg/dL (<200); Estimated Glomerular Filt Rate > 60; Glucose Random 91 mg/dL (60-115); HDL Cholesterol 58 mg/dL (>40); LDL Cholesterol Calculated 107 mg/dL (<100); Potassium 3.9 mmol/L (3.3-5.1); Sodium 140 mmol/L (135-145); Total Protein 7.3 g/dL (6.5-8.0); Triglycerides 72 mg/dL (<150)
== END 2024-12-29 08:03 | disposition home or self-care (01) ==
LOC: HO.HHCL 08:02
PROVIDERS: Visit Provider Internal Medicine Geriatric Medicine
DX: Z13.1 Encounter for screening for diabetes mellitus (principal); Z13.220 Encounter for screening for lipoid disorders
CPT/HCPCS: 36415; 80053; 80061

== ENCOUNTER 2025-03-04 12:05 | Outpatient (AMB) | payer OTHER, SELFPAY ==
--- NOTE | 2025-03-04 12:07 | A.OFFVIS_ITS ---
Vital Signs 03/04/25 12:14 Height 5 ft 4 in Weight 163 lb BMI 28.0 BP 142/72 H Blood Pressure Location Rt brachial Position Sitting Pulse 74 Pulse Source Pulse Oximeter Pulse Oximetry (%) 98 Oxygen Delivery Method Room Air Intake Visit Reasons: 1 year follow up [facility] Intake Note: Est pt for mgmt of [facility]. CC; Pt denies any GI sx or concerns at this time. Confirms that her linzess is still working as intended. Oil Developer Required: Yes Oil Developer Services: Oil Developer Present Oil Developer [place] [facility] [place] [id number] Information Interpreted: clinical only Accompanied by: Self / Same As Patient Allergies No Known Allergies (No Known Allergies*) Allergy (Verified 03/04/25 12:07) HPI HPI 1 year follow up [facility]: Details: Assessment & Plan (1) Chronic idiopathic constipation: Code(s): K59.04 - Chronic idiopathic constipation Category: Medical Plan [place] #[id number] She continues to do well on her Linzess. Return office visit in 6 months Medications: Refilled linaclotide (Linzess) 290 mcg PO QAM 30 caps 12RF 30 days K59.04 - Chronic idiopathic constipation TODAYS VISIT [place] Nicolás Live On the Linzess 290 she is now moving her bowels well and is satisfied with this. Return office visit in 6 months [facility] Medical History No known health problems Surgical History H/O colonoscopy Family History Sister Breast cancer Maternal Aunt Fear of having malignant neoplasm of lymphatic system Social History Alcohol intake: never Patient Tobacco Use Status: Never used Tobacco Review of Systems Const Denies fatigue, Denies fever(s), Denies night sweats, Denies poor appetite and Denies weight loss Eyes Reports requires corrective lenses ENT Reports Normal hearing present, Denies dental pain, Denies dysphagia, Denies hearing loss, Denies mouth pain, Denies odynophagia, Denies throat swelling, Denies tongue swelling and Reports other (Dentition adequate) GI Details: Denies abdominal pain, Denies melena, Denies bloating, Denies hematochezia, Denies constipation, Denies GI cramping, Denies dysphagia, Denies excessive flatus, Denies early satiety, Denies heartburn, Denies diarrhea, Denies nausea, Denies odynophagia, Denies vomiting and Denies hematemesis Skin/Breast Denies pruritus, Denies lesions, Denies rash and Denies jaundice Neuro Reports Normal hearing present and Denies Abnormal speech present Endo Denies fatigue Aller/Immun Denies throat swelling and Denies tongue swelling Physical Exam Vital Signs: Last Vital Signs Pulse 74 03/04/25 12:14 BP 142/72 H 03/04/25 12:14 Pulse Ox 98 03/04/25 12:14 Oxygen Delivery Method Room Air 03/04/25 12:14 BMI result Body Mass Index 28.0 Const General: cooperative, no acute distress, well developed and well groomed Nutritional Appearance: well nourished Orientation/consciousness: oriented to person, oriented to place and oriented to time Limitations: language barrier HEENT Head: Yes normocephalic and Yes atraumatic Eyes General: appearance normal, both eyes and all related structures Pupils: Equal, round and reactive pupils present Neck Neck: Yes normal visual inspection and Yes no lymphadenopathy Thyroid: Thyroid normal Resp Effort & Inspection: normal respiratory effort and able to speak in complete sentences Auscultation: clear to auscultation bilaterally Cardio Rate: regular rate Rhythm: regular rhythm Heart sounds: Normal, physiologic split S2 sound present Peripheral pulses: radial pulses present and posterior tibial pulses present GI Inspection: No distended and No Abdominal panniculus present Palpation (GI): Soft to palpation, nontender, no guarding, not rigid and No hepatosplenomegaly present Percussion: Yes normal to percussion Auscultation: normal bowel sounds Rectal Exam - Female: deferred Skin General skin exam: no rashes or lesions noted, turgor normal, skin not dry, no jaundice, No spider nevi and no striae Rashes: no rashes Nails: normal Neuro General: oriented to person, oriented to place and oriented to time Cranial nerves: Yes Equal, round and reactive pupils present and Yes Normal hearing present Speech: No Abnormal speech present Extrem General: Yes normal to inspection, No clubbing, No cyanosis and No edema Psych Thought process: Normal thought process present and not confabulating Thought content: Normal thought content present Insight: Good insight present (Psych) Judgement: Good judgement present (Psych) Assessment & Plan Assessment & Plan (1) Chronic idiopathic constipation: Code(s): K59.04 - Chronic idiopathic constipation Category: Medical Plan [place] Nicolás Live On the Linzess 290 she is now moving her bowels well and is satisfied with this. Return office visit in 6 months Medications: Refilled linaclotide (Linzess) 290 mcg PO QAM 30 caps 12RF 30 days K59.04 - Chronic idiopathic constipation Coding Level of Care Code Est Pt Level 3 (07557) Diagnoses Chronic idiopathic constipation K59.04
[2025-03-04 12:14] VITALS: BP 142/72; PULSE 74; O2SAT 98; BMI 28.0
--- OUTSIDE RECORDS SUMMARY | 2025-03-04 14:27 | XMS_ITS | Encounter Summary ---
Author Organization [employer] Address [address] [facility] [address]t [place] [address] Care Team Providers Care Traffic Clerk Name Role Phone Name, Cheko BRANDT Primary Care Provider [phone] Reason for Visit * Reason Onset Date Comments insurance for appt 02/11/2024 Encounter Details Date Type Department Care Team ([facility] st Contact Info) Description 02/11/2024 Telephone [facility] ADULT DENTAL [address] [place] [address] Rosaura Desouza, DDS [address] [place] [address] insurance for appt Social History Tobacco Use [...] with her. Patient understood Informed front desk administrator via email and documented in chart DR documented in this encounter Plan of Treatment Upcoming Encounters Date Type Department Care Team (Late st Contact Info) Description 04/30/2025 10:30 AM EDT Office Visit [facility] MEDICINE [address] [place] [address] Name, MD Cheko [address] [place] [address] 06/17/2025 3:00 PM EDT Office Visit [facility] ADULT DENTAL [address] [place] [address] Rekha Holt documented as of this encounter Visit Diagnoses Not on filedocumented in this encounter Additional Health Concerns Assessment Noted Time PHQ-9 Depression Total Score: 0 03/26/20 23 9:41 AM EDT documented as of this encounter Care Teams Traffic Clerk Relationship Specialty Start Date End Date Name, MD Cheko [address] [place] [id number] PCP - General Family Medicine 03/04/17 documented as of this encounter
== END 2025-03-04 12:41 | disposition home or self-care (01) ==
LOC: HO.HGI 12:05
PROVIDERS: PCP Internal Medicine Geriatric Medicine; Visit Provider Nurse Practitioner
DX: K59.04 Chronic idiopathic constipation (principal)
CPT/HCPCS: 99213

== ENCOUNTER → 2025-03-04 12:05 | Outpatient (BNVA) | payer OTHER, SELFPAY | PROVIDERS: PCP Internal Medicine Geriatric Medicine; Visit Provider Nurse Practitioner | DX: K59.04 Chronic idiopathic constipation (principal) | CPT/HCPCS: 99212 ==

== ENCOUNTER 2025-03-25 12:52 | Outpatient (REF) | payer OTHER, SELFPAY ==
--- OUTSIDE RECORDS SUMMARY | 2025-03-25 13:16 | XMS_ITS | Encounter Summary ---
Author Organization [employer] Address [address] [facility] 7t [place] [address] Care Team Providers Care Full Time Paramedic Name Role Phone Name, Cheko BRANDT Primary Care Provider [phone] Reason for Visit * Reason Onset Date Comments insurance for appt 02/11/2024 Encounter Details Date Type Department Care Team ([facility] st Contact Info) Description 02/11/2024 Telephone [facility] ADULT DENTAL [address] [place] [address] Rosaura Desouza, DDS [address] [place] [address] insurance for appt Social History Tobacco Use [...] appt with her. Patient understood Informed front office representative via email and documented in chart DR documented in this encounter Plan of Treatment Upcoming Encounters Date Type Department Care Team (Late st Contact Info) Description 04/30/2025 10:30 AM EDT Office Visit [facility] MED[facility]INE [address] [place] [address] Name, MD Cheko [address] [place] [address] 06/17/2025 3:00 PM EDT Office Visit [facility] ADULT DENTAL [address] [place] [address] Rekha Holt documented as of this encounter Visit Diagnoses Not on filedocumented in this encounter Additional Health Concerns Assessment Noted Time PHQ-9 Depression Total Score: 0 03/26/20 23 9:41 AM EDT documented as of this encounter Care Teams Full Time Paramedic Relationship Specialty Start Date End Date Name, MD Cheko [address] [place] [address] PCP - General Family Medicine 03/04/17 documented as of this encounter
== END 2025-03-25 12:53 | disposition home or self-care (01) ==
LOC: HO.MAMMO 12:52
PROVIDERS: PCP Internal Medicine Geriatric Medicine; Visit Provider Internal Medicine Geriatric Medicine
DX: Z12.31 Encounter for screening mammogram for malignant neoplasm of breast (principal)
CPT/HCPCS: 77063; 77067

== ENCOUNTER → 2025-03-25 13:00 | Outpatient (BNV) | payer OTHER, SELFPAY | PROVIDERS: PCP Internal Medicine Geriatric Medicine; Visit Provider Internal Medicine | DX: Z12.31 Encounter for screening mammogram for malignant neoplasm of breast (principal) | CPT/HCPCS: 77063; 77067 ==

== ENCOUNTER 2025-07-20 09:33 | Outpatient (REF) | payer OTHER, SELFPAY ==
--- OUTSIDE RECORDS SUMMARY | 2025-07-20 10:35 | XMS_ITS | Clinical Summary ---
Author Organization [employer] Address [address] [facility] [address] [place] [address] Care Team Providers Care Film Spooler Name Role Phone Name, Cheko BRANDT Primary Care Provider Allergies No known active allergies Medications Multiple Vitamins-Minera ls (MULTIVITAMIN ADULT, MINERALS, PO) 1 tablet. 04/25/2022 Activ e Blood Pressure kitIndications: Elevated blood pressure reading Use once a day 1 kit 12/15/2024 Active acetaminophen (Tylenol) 500 MG tablet Take 2 tablets (1,000 mg) by mouth every 8 (eight) hours if needed for mild pain. 90 tablet 02/02/2025 Active meloxicam (Mobic) 7.5 MG tablet Take 1 tablet (7.5 mg) by mouth Once per day. 60 tablet 06/02/2025 Active Active Problems Problem Noted Date Diagnosed Date Left arm pain 02/02/2025 Assessment & Plan (02/03/2025 10:59 PM EDT): - No chest pain - EKG normal - Will try acetaminophen and meloxicam - Reviewed ER precaution - Follow up in 1 week - Prescribed acetaminophen (Tylenol) 500 MG tablet - Prescribed meloxicam (Mobic) 7.5 MG tablet Elevated blood pressure read ing without diagnosis of hypertension 02/02/2025 Assessment & Plan (02/02/2025 4:19 PM EDT): - Pt agrees to check BP at home - Advised to inform us if BP is persistently elevated over 150 - Will check back with us in 1 week Tooth pain 02/02/2025 Assessment & Plan (02/02/2025 4:55 PM EDT): - Left lower tooth pain - Prior root canal. Will start anti biotic and request urgent appointment with dentist Dental calculus 05/12/2024 Dental plaque 05/12/2024 Chronic idiopathic constipation 03/26/2023 Overview (03/26/2023): Normal colonoscopy 08/2022 Fibrocystic breast disease 04/28/2018 Resolved Problems Problem Noted Date Diagnosed Date Resolved Date Cervical muscle strain 03/26/202303/26 Diabetes 03/26/2023 03/26/2023 Preop examination 03/26/2023 03/26/2023 Positive colorectal cancer s creening using DNA-based stool test 03/13/2022 03/26/2023 Hand pain 11/04/2017 03/26/2023 Encounters Date Type Department Care Team Description 07/13/2025 2:00 PM EST Office Visit [facility] [address] [place] [phone] Cheko Griggs MD Physical exam (Primary Dx); Screening for cholesterol level; Screening for diabetes mellitus; Elevated blood pressure reading without diagnosis of hypertension; Encounter for immunization 07/13/2025 Travel 07/12/[address] [facility] [address] [place] [id number] Jerald Ochoa MA chart prep 07/06/2025 Patient Outreach [facility] [address] [place] [address] Cheko Griggs MD Pre-visit Planning (SDOH was already completed) 06/02/2025 3:20 PM EDT Office Visit [facility] [address] [place] [phone] Rona Olvera MD Right shoulder tendonitis (Primary Dx) 06/02/2025 Travel 04/23/2025 Patient Outreach [facility] [address] [place] [address] Cheko Griggs MD Pre-visit Planning (SDOH negative, Tobacco screening negative. ) from Last 3 Months Immunizations Immunization Administration Dates Next Due Influenza injectable quadriv alent IIV4 with preservative 06/25/2018 Influenza, seasonal, injectable, preservative fr ee 07/13/2025 MMR 03/15/2017 Tdap 03/07/2017 Family History Medical [...] housing situation today? I have diana ugalde 04/23/[address] you li ve. Do you have problems with any of the following? None of the above 04/23/2025 Food Insecurity Answer Date Recorded Within the past 12 months, y ou worried that your food would run out before you got money to buy more: Never True 04/23/2025 Within the past 12 months,th e food you bought just didn't last and you didn't have enough money to get more: Never True Transportation Answer Date Recorded In the past 12 months, has l ack of transportation kept you from medical appts, meetings, work or from getting things needed for daily living? No 04/23/2025 Utilities Answer Date Recorded In the past 12 months, has t he electric, gas, oil or water company threatened to shut off services in your home? No 04/23/2025 Depression Answer Date Recorded Patient Health Questionnaire-2 Score 0 12/15/2024 Internet Access Answer Date Recorded Internet Access Q1 Yes 04/23/2025 Internet Access Q2 Not on file 04/23/2025 Comments No Sex and Gender Information Value Date Recorded Sex Assigned at Female 07/09/2022 10:31 AM EDT Legal Sex Female 10:31 AM EDT Gender Identity Female 07/09/2022 10:31 AM EDT Sexual Orientation Straight 07/09/2022 10 :31 AM EDT Last Filed Vital Signs Vital Sign Reading Time Taken Comments Blood Pressure 146/85 07/13/2025 2:19 PM EST Pulse 84 07/13/2025 2:04 PM EST Temperature 36.3 C (97.3 F) 07/13/2025 2:04 PM EST Respiratory Rate 12 07/13/2025 2:04 PM EST Oxygen Saturation 99% 07/13/2025 2:04 PM EST Inhaled Oxygen Concentration - - Weight 77.7 kg (171 lb 6.4 oz) 07/13/2025 2:04 P M EST Height 160 cm (5' 3 ) 07/13/2025 2:04 PM EST Body Mass Index 30.36 07/13/2025 2:04 PM EST Plan of Treatment Upcoming Encounters Date Type Department Care Team (Late st Contact Info) Description 07/29/2025 1:[address] [facility] [address] [place] [address] Health Maintenance Due Date Last Done Comments CT Colonography 1972 FIT DNA/Cologuard 1972 FIT 1972 FOBT 1970 HIV Screening 1970 Sigmoidoscopy 1972 Hepatitis C Screening 01/19/1990 Hepatitis B Vaccines (1 of 3 - 19+ 3-dose series) 01/19/1991 Pneumococcal Vaccine: 50+ Years (1 of 1 - PCV) 01/19/2022 Zoster Vaccines (1 of 2) 01/19/2022 COVID-19 Vaccine (3 - 2024- season) 2025 03/07/2021, 02/14/2021 Dental Oral Exam 06/13/2025 12/11/2024, 11/2023, 07/17/2018 Dental Prophylaxis 06/13/2025 12/11/2024, 05/12/2024 Dental X-Ray: Bitewings 12/12/2025 12/12/19 25, 05/12/2024, 07/17/2018 Alcohol/Substance Use Screening 12/15/2025 12/15/2024 Depression Screening 12/15/2025 12/15/2024, 12/16/19 Cervical Cancer Screening 02/22/2026 HPV/Cotest 02/22/2026 02/22/2021 Pap Smear 02/22/2026 02/22/2021 Mammogram 03/25/2026 03/25/2025, 07/1 , 03/15/2023, Additional history exists SDOH Screening 04/23/2026 04/23/2025 Disability Screening 07/13/2026 07/13/2025 Tobacco Screening 07/13/2026 07/13/2025 Dental X-Ray: Full Mouth 02/11/2027 02/11/2024, 11/0 04/2018 DTaP/Tdap/Td Vaccines (2 - Td or Tdap) 03/07/2027 03/07/2017 Colonoscopy 09/09/2031 09/09/2021 Colorectal Cancer Screening 09/09/2031 RSV Patients and Patients Aged 60 years or older (1 - 1-dose 75+ series) 01/19/2047 Influenza Vaccine Completed 07/13/2025, 06/25/2018 HIB Vaccines Aged Out No longer eligi [...] patient's age to complete this topic Meningococcal B Vaccine Aged Out No l onger eligible based on patient's age to complete [...] Procedure Name Priority Date/Time Associated Diagnosis Comments BI MAMMOGRAM SCREENING TOMOSYNTHESIS BILATERAL Routine 03/25/2025 1:00 PM EDT PROPHYLAXIS - ADULT Routine 12/11/2024 3 :00 PM EDT BITEWING - SINGLE RADIOGRAPHIC IMAGE Routine 12/11/2024 3:00 PM EDT PERIODIC ORAL EVALUATION - ESTABLISHED PATIENT Routine 12/11/2024 3:00 PM EDT PANORAMIC RADIOGRAPHIC IMAGE Routine 02/11/2024 1:00 PM EDT HM COLONOSCOPY Routine 09/09/2021 HPV MRNA E6/E7 Routine 02/22/2021 10:42 AM EDT THINPREP PAP Routine 02/22/2021 10:42 AM EDT from Last 3 Months or Most Recently Relevant to Health Maintenance Results * BI Mammogram Screening Tomosynthesis Bilateral (03/25/2025 1:00 PM EDT) Anatomical Region Laterality Modality Breast Bilateral Mammography 03/25/2025 1:00 PM EDT Narrative 04/05/2025 3:24 PM EDT [facility] [address] [place] [address] Mammography Report Signed Patient: Tamy Boucher MR#: [id number] : 1970 Acct:[id number] Age/Sex: 55 / F ADM Date: 03/25/25 Loc: HO.MAMMO Attending Dr: Cheko Griggs MD Ordering Physician: Cheko Griggs MD Results: 1Negative Date of Service: 03/25/25 Follow Up: 1 Year From Orig ina Mammogram Procedure(s): MM tomosynthesis screening BI Accession Number(s): [id number] cc: Cheko Griggs MD EXAMINATION: MM SCREENING DIGITAL BREAST TOMOSYNTHESIS, BILATERAL CLINICAL INFORMATION: Screening. Asymptomatic. COMPARISON: Mammography: Comparison is made with available priors TECHNIQUE: Digital breast mammography with tomosynthesis is performed in both the craniocaudal and mediolateral oblique views along with computer-aided detection (CAD). FINDINGS: There are scattered areas of fibroglandular [...] target due date for their next mammogram. Electronically signed by: June Holt DO 04/05/2025 03:21 PM EDT Dictated By: June Holt DO Signed By: <Electronically signed by June Holt DO in OV> 04/05/25 1521 DD/ 1300 TD/TT: 03/25/25 1316 Stereo Plotter Operator: Procedure Note Donotkikiter, Image - 04/05/[facility] [address] [place] [address] Mammography Report Signed Patient: Tamy Boucher#: [id number] : 1970Acct:[id number] Age/Sex: 55 / FADM Date: 03/25/25 Loc: HO.MAMMO Attending Dr: Cheko Griggs MD Ordering Physician: Cheko Griggsesults: 1Negative Date of Service: 03/25/25Follow Up: 1 Year From Orig inal Mammogram Procedure(s): MM tomosynthesis screening BI Accession Number(s): [id number] cc: Cheko Griggs MD EXAMINATION: MM SCREENING DIGITAL BREAST TOMOSYNTHESIS, BILATERAL CLINICAL INFORMATION: Screening. Asymptomatic. COMPARISON: Mammography: Comparison is made with available priors TECHNIQUE: Digital breast mammography with tomosynthesis is performed in both the craniocaudal and mediolateral oblique views along with computer-aided detection (CAD). FINDINGS: There are scattered areas of fibroglandular [...] target due date for their next mammogram. Electronically signed by: June Holt DO 04/05/2025 03:21 PM EDT Dictated By: June Holt DO Signed By: <Electronically signed by June Holt DO in OV> 04/05/25 1521 DD/ 1300 TD/TT: 03/25/25 1316 Stereo Plotter Operator: us Still Name IMG BI PROCEDURES Final Result * Hm Colonoscopy (09/09/2021) Pathologist [facility] Colonoscopy Normal Normal us Cheko Griggs MD HEALTH MAINTENANCE Final Result * THINPREP PAP (02/22/2021 10:42 AM EDT) Pathologist [facility] Clinical Information: None given [facility] COMMENT SEE COMMENT [facility] Comment: EXPLANATORY NOTE: The Pap is a screening test for cervical cancer. It is not a diagnostic test and is subject to false negative and false positive results. It is most reliable when a satisfactory sample, regularly obtained, is submitted with relevant clinical findings and history, and when the Pap result is evaluated along with historic and current clinical information. Transitional Care Nurse : SEE COMMENT [facility] Comment: BLC,CT(ASCP) CT screening location: [place] [address] Interpretation/R esult: Negative for intraepithelial lesion or malignancy. [facility] LMP: 02/17/2021 [facility] Prev. BX: NONE GIVEN [facility] Prev. PAP: 12/24 NIL [facility] SOURCE: Cervix [facility] Statement Of Adequacy: SEE COMMENT [facility] Comment: Satisfactory for evaluation. Endocervical/transformation zone component present. 02/22/2021 10:4 2 AM EDT Monse [facility] ORDERABLES Final Result [facility] [address] * HPV mRNA E6/E7 (02/22/2021 10:42 AM EDT) Pathologist [facility] HPV nRNA E6/E7 Not Detected Not Detected [facility] Comment: Methodology: Shift Nurse Manager-Mediated Amplification This assay detects E6/E7 viral messenger RNA (mRNA) from 14 high-risk HPV types (16,18,31,33,35,39,45,51,52,56,58,59,66,68). The analytical performance characteristics of this assay have been determined by [employer]. The modifications have not been cleared or approved by the FDA. This assay has been validated pursuant to the CLIA regulations and is used for clinical purposes. For additional information, please refer to http://education.Un[employer]ore/faq/TTR187t4 (This link if provided for information/ educational purposes only.) 02/22/2021 10:4 2 AM EDT us Monse James [facility]LOOD ORDERABLES Eneida zaman Result [facility] [address] from Last 3 Months or Most Recently Relevant to Health Maintenance Insurance [facility] D[facility] - HSN PARTIAL (MEDICAID) Care Teams Film Spooler Relationship Specialty Start Date End Date Name, MD Cheko [address] [place] [id number] PCP - General Family Medicine 03/04/17
--- OUTSIDE RECORDS SUMMARY | 2025-07-20 10:35 | XMS_ITS | Encounter Summary ---
Author Organization [email or web address] Address [address] [facility] [address] [place] [address] Care Team Providers Care Assistant Executive Housekeeper Name Role Phone Name, Cheko BRANDT Primary Care Provider [phone] Reason for Visit * Reason Onset Date Comments insurance for appt 02/11/2024 Encounter Details Date Type Department Care Team ([facility] st Contact Info) Description 02/11/2024 Telephone [facility] [address] [place] [address] Rosaura Desouza, DDS [address] [place] [address] insurance for appt Social History Tobacco Use Types Packs/Day Years Used Date Smoking Tobacco: Never Smokeless Tobacco: Never Alcohol Use Standard Drinks/Week Comments Never 0 (1 standard drink = 0.6 oz pur e alcohol) Depression Answer Date Recorded Patient Health Questionnaire-9 Score 0 03/26/2023 Housing Stability Answer Date Recorded What is your housing situation today? I have diaan ugalde 07/08/[address] you [...] to appt with her. Patient understood Informed desktop support specialist via email and documented in chart DR documented in this encounter Plan of Treatment Upcoming Encounters Date Type Department Care Team (Late st Contact Info) Description 07/29/2025 1:00 PM EST Telemedicine [facility] [address] [place] [address] documented as of this encounter Visit Diagnoses Not on filedocumented in this encounter Additional Health Concerns Assessment Noted Time PHQ-9 Depression Total Score: 0 03/26/20 23 9:41 AM EDT documented as of this encounter Care Teams Assistant Executive Housekeeper Relationship Specialty Start Date End Date Name, MD Cheko [address] [place] [address] PCP - General Family Medicine 03/04/17 documented as of this encounter
[2025-07-20 12:01] LABS: Alanine Aminotransferase 23 U/L (0-31); Albumin Level 4.4 g/dL (3.5-5.0); Alkaline Phosphatase 57 U/L (39-117); Anion Gap 10 (12-20); Aspartate Amino Transferase 27 U/L (5-31); Blood Urea Nitrogen 16 mg/dL (9-16); Calcium 8.9 mg/dL (8.4-10.2); Carbon Dioxide 24 mmol/L (22-29); Chloride 107 mmol/L (96-108); Cholesterol 178 mg/dL (<200); Estimated Glomerular Filt Rate > 60; HDL Cholesterol 62 mg/dL (>40); Potassium 4.1 mmol/L (3.3-5.1); Sodium 137 mmol/L (135-145); Total Protein 7.3 g/dL (6.5-8.0); Triglycerides 53 mg/dL (<150)
== END 2025-07-20 09:34 | disposition home or self-care (01) ==
LOC: HO.HHCL 09:33
PROVIDERS: PCP Internal Medicine Geriatric Medicine; Visit Provider Internal Medicine Geriatric Medicine
DX: Z00.00 Encounter for general adult medical examination without abnormal findings (principal)
CPT/HCPCS: 36415; 80053; 80061